=== PATIENT | male | born 1935 | race Caucasian/White ===

== ENCOUNTER 2017-03-11 08:00 | Day surgery (SDC) | payer MEDICARE, BC ==
[~2017-03-11] VITALS: Ht 180.3 cm; Wt 83.0 kg
[~2017-03-11 08:00] MED LIST: ADVAIR DISK1 INH; AMLODIPINE5 MG PO; AMOXICILLIN/CL875 MG PO; ATORVASTATIN CA40 MG PO; CLOPIDOGREL75 MG PO; DIOVAN80 MG PO; EQL ASPIRIN325 MG PO; FUROSEMIDE40 MG PO; GLIMEPIRIDE4 MG PO; JANUVIA100 MG PO; METFORMIN500 M2 PO; SPIRIVA IN; SPIRONOLACT25 MG PO; TAMSULOSIN0.4 MG PO; XARELTO20 MG PO
[2017-03-11 10:44] VITALS: BP 107/59
[2017-03-12] MEDS ORDERED: DIOVAN80 MG PO (15:25)
[2017-03-12] MEDS ORDERED: METFORMIN850 MG PO (15:26)
[2017-03-12] MEDS ORDERED: METO25TAB PO (15:29)
[2017-03-13] MEDS ORDERED: PROTONIX40 M2 PO (13:06)
[2017-03-13] MEDS ORDERED: VALSARTAN40 MG PO (13:06)
[2017-03-13] MEDS ORDERED: AMIODARONE200 MG PO (13:16)
== END 2017-03-11 11:05 | disposition home or self-care (01) ==
LOC: ENDO 08:00 → ORM 09:00 → ENDO 09:00 → ORM 09:45 → ENDO 11:05
PROVIDERS: ATTEND Surgery
PROC: 0DJ08ZZ Inspection of Upper Intestinal Tract, Via Natural or Artificial Opening Endoscopic (ICD-10-PCS; principal; 2017-03-11)
PROC: 0DJD8ZZ Inspection of Lower Intestinal Tract, Via Natural or Artificial Opening Endoscopic (ICD-10-PCS; 2017-03-11)
DX: R19.5 Other fecal abnormalities (principal); R63.4 Abnormal weight loss; K29.70 Gastritis, unspecified, without bleeding; K57.30 Diverticulosis of large intestine without perforation or abscess without bleeding; K55.20 Angiodysplasia of colon without hemorrhage; R14.0 Abdominal distension (gaseous); I11.0 Hypertensive heart disease with heart failure; I50.9 Heart failure, unspecified; E78.00 Pure hypercholesterolemia, unspecified; E11.9 Type 2 diabetes mellitus without complications; Z95.1 Presence of aortocoronary bypass graft; F17.210 Nicotine dependence, cigarettes, uncomplicated

== ENCOUNTER 2018-02-27 22:17 | Observation (INO) | payer MEDICARE, BC ==
[~2018-02-27] VITALS: Ht 180.3 cm; Wt 83.5 kg
[~2018-02-27 22:17] MED LIST changes: +AMIODARONE200 MG PO; +METFORMIN850 MG PO; +METO25TAB PO; +PROTONIX40 M2 PO; +VALSARTAN40 MG PO
--- NOTE | 2018-02-27 22:27 | NUR ---
DR AT BEDSIDE. PT IN ROOM
[2018-02-27 23:25] LABS: HEMATOCRIT 36.5 % (39.0-50.0); HEMOGLOBIN 12.1 g/dl (14.0-18.0); IMMATURE GRANULOCYTES 0.4 % (0.0-5.0); MEAN CELL VOLUME 87.3 fL CALC (80.0-100.0); MEAN CORPUSCULAR HGB 28.9 pG CALC (26.0-32.0); MEAN CORPUSCULAR HGB CONC 33.2 g/L CALC (32.0-36.0); NEUT# 5.78 thou/uL (1.82-7.42); RED BLOOD COUNT 4.18 mill/uL (4.70-6.10); RED CELL DISTRI WIDTH 14.3 % (11.5-15.5)
[2018-02-27 23:33] LABS: ACT PARTIAL THROMBO TIME 33.5 SECONDS (20.0-32.5); INTERNATIONAL NORMALIZED RATIO 1.3 RATIO (0.7-1.3); PROTHROMBIN TIME 13.9 SECONDS (9.0-12.5)
[2018-02-27 23:43] LABS: ALBUMIN 3.8 g/dL (3.2-5.0); ALKALINE PHOSPHATASE 54 u/l (38-126); ANION GAP 14 (6-22 (CALC)); BILIRUBIN, TOTAL 0.9 mg/dL (0.0-1.4); BUN 22 mg/dL (8-23); BUN/CREATININE RATIO 24 (12-20 (CALC)); CARBON DIOXIDE 22 mmol/l (22-30); CHLORIDE 108 mmol/l (95-108); CREATININE 0.9 mg/dL (0.7-1.3); GFR > 60 ML/MIN (>=60 (CALC)); GFR FOR AFR.AMER. > 60 ML/MIN (>=60 (CALC)); POTASSIUM 3.8 mmol/l (3.5-5.1); SGOT/AST 15 u/l (19-48); SODIUM 141 mmol/l (137-146); TOTAL PROTEIN 6.8 g/dL (6.3-8.2)
[2018-02-27 23:55] LABS: MYOGLOBIN 31 ng/mL (0 - 121)
--- NOTE | 2018-02-28 00:46 | NUR ---
PT APPEARS SOB ON EXERT. VOIDED 450 CC IN URINAL. PLACED ON NC FOR SAT OF 91
--- NOTE | 2018-02-28 00:49 | NUR ---
DR AWARE OF VS/UO/JUST ADMINISTERED LASIX
--- NOTE | 2018-02-28 00:54 | NUR ---
AT BEDSIDE TO DISCUSS RESULTS
--- NOTE | 2018-02-28 01:25 | NUR ---
REPORT TO ROBBIE, NURSE/MED SURG
--- NOTE | 2018-02-28 01:25 | NUR ---
PT VOIDED ANOTHER 800 CCS OF CLEAR YELLOW URINE FOR A TOTAL OF 1200 WHILE IN ER. TO FLOOR WITHOUT INCIDENT. AT BEDSIDE. PT AMBULATORY TO BED. NAD. BELONGINGS AND BAG OF MEDS AT BEDSIDE. RESP EASY. PT ON PORTABKLE MONITOR AND O2
[2018-02-28] MEDS ORDERED: MICRO-K10 ME1 PO (01:31)
[2018-02-28] MEDS ORDERED: TRAZODONE50 MG PO (01:32)
[2018-02-28] MEDS ORDERED: GABAPENTIN300 M2 PO (01:33)
[2018-02-28] MEDS ORDERED: DALIRESP500 MCG PO (01:34)
[2018-02-28] MEDS ORDERED: PROBIOTI2 PO (01:36)
[2018-02-28] MEDS ORDERED: BREO ELLIPTA 101 INH INHW/SPAC (01:37)
[2018-02-28] MEDS ORDERED: ANORO ELLIPTA 61 AER IN (01:37)
[2018-02-28] MEDS ORDERED: MELATONIN1 MG PO (01:38)
--- NOTE | 2018-02-28 01:38 | NUR ---
PT ARRIVED TO FLOOR VIA STRETCHER ACCOMPANIED BY ED NURSE. PT APPEARS TO BE IN STABLE CONDITION. V/S OBTAINED AND PT IS BEING ORIENTED TO ROOM,CALL SYSTEM, LIGHTS AND BED. ASSISTED TO RESTROOM. IS AT BEDSIDE.
[2018-02-28 01:56] VITALS: BP 143/70
--- NOTE | 2018-02-28 02:10 | NUR ---
PT ASSESSED, LUNG SOUNDS ARE DIMINISHED, ABD SOFT NON-TENDER, SKIN INTACT, TRACE EDEMA TO ANKLES BILAT, LOCX4. DENIES SOB/PAIN, PT IS TALKATIVE AND MAKING JOKES AND REPORTS FEELING MUCH BETTER SINCE ARRIVING TO HOSPITAL. IS NO LONGER AT BEDSIDE. POC DISCUSSED W/PT. URINAL EMPTIED OF 400CC CLEAR YELLOW URINE. CALL LIGHT PLACED AT PT SIDE AND PT ENCOURAGED TO CALL IF ANY NEEDS ARISE OR PRIOR TO AMBULATING FOR SAFETY MEASURES.
[2018-02-28 04:09] VITALS: BP 153/83
[2018-02-28 04:25] VITALS: BP 138/83
--- NOTE | 2018-02-28 05:06 | NUR ---
PT C/O OF HEADACHE/MEDICATED ORDERS PROVIDE. URINAL EMPTIED OF 500CC CLEAR LIGHT YELLOW URINE. PT DENIES ANY OTHER NEEDS AT THIS TIME. CALL LIGHT AT BEDSIDE.
[2018-02-28 05:35] LABS: URINE BILIRUBIN - DIPSTICK NEGATIVE (NEGATIVE); URINE BLOOD DIPSTICK NEGATIVE (NEGATIVE); URINE COLOR YELLOW; URINE GLUCOSE - DIPSTICK NEGATIVE (NEGATIVE); URINE KETONE NEGATIVE (NEGATIVE); URINE LEUK ESTERASE NEGATIVE (NEGATIVE); URINE NITRITE - DIPSTICK NEGATIVE (Negative); URINE PH 6.5 (4.5-8.0); URINE PROTEIN - DIPSTICK NEGATIVE (NEG-TRACE); URINE SPECIFIC GRAVITY <=1.005; URINE UROBILINOGEN - DIPSTICK 0.2 E.U./dL (0.2)
--- NOTE | 2018-02-28 07:00 | NUR ---
SHIFT REPORT, PT AWAKE ALERT AND ORIENTED SITTING UP IN BED, NO C/O DISCOMFORT, TELE MONITOR IN PLACE, CALL BUI IN REACH.
[2018-02-28 08:08] VITALS: BP 142/68
[2018-02-28 10:11] LABS: HEMATOCRIT 38.5 % (39.0-50.0); HEMOGLOBIN 12.6 g/dl (14.0-18.0); IMMATURE GRANULOCYTES 0.5 % (0.0-5.0); MEAN CELL VOLUME 88.1 fL CALC (80.0-100.0); MEAN CORPUSCULAR HGB 28.8 pG CALC (26.0-32.0); MEAN CORPUSCULAR HGB CONC 32.7 g/L CALC (32.0-36.0); NEUT# 7.98 thou/uL (1.82-7.42); RED BLOOD COUNT 4.37 mill/uL (4.70-6.10); RED CELL DISTRI WIDTH 14.5 % (11.5-15.5)
[2018-02-28 10:18] LABS: ANION GAP 15 (6-22 (CALC)); BUN 19 mg/dL (8-23); BUN/CREATININE RATIO 21 (12-20 (CALC)); CARBON DIOXIDE 24 mmol/l (22-30); CHLORIDE 107 mmol/l (95-108); CREATININE 0.9 mg/dL (0.7-1.3); GFR > 60 ML/MIN (>=60 (CALC)); GFR FOR AFR.AMER. > 60 ML/MIN (>=60 (CALC)); MAGNESIUM 2.1 mg/dL (1.6-2.3); POTASSIUM 3.4 mmol/l (3.5-5.1); SODIUM 143 mmol/l (137-146)
[2018-02-28 12:32] VITALS: BP 112/63
--- NOTE | 2018-02-28 12:50 | NUR ---
RELAXING IN RECLINER, MEDICAL TEAM ROUNDED AND DISCUSSED PLAN OF CARE, PT STATED UNDERSTANDING, ALL NEEDS ADDRESSED.
[2018-02-28] MEDS ORDERED: LASIX20 MG PO (14:26)
--- NOTE | 2018-02-28 15:25 | NUR ---
Discharge instructions given. Patient verbalizes understanding of same. Discharged in good condition via Ambulatory to Home with spouse. All belongings sent with pt.
== END 2018-02-28 15:35 | disposition home or self-care (01) ==
LOC: ED 22:17 → ED-I 02-28 00:49 → ED 02-28 01:06 → MS2 02-28 01:07
PROVIDERS: Emergency Medicine; Nurse Practitioner Family; ADMIT Internal Medicine Nephrology; ATTEND Internal Medicine Nephrology
DX: I11.0 Hypertensive heart disease with heart failure (principal); I50.23 Acute on chronic systolic (congestive) heart failure; E11.9 Type 2 diabetes mellitus without complications; J44.9 Chronic obstructive pulmonary disease, unspecified; E87.6 Hypokalemia; E78.5 Hyperlipidemia, unspecified; I48.2 Chronic atrial fibrillation; D64.9 Anemia, unspecified; F17.200 Nicotine dependence, unspecified, uncomplicated; Z95.5 Presence of coronary angioplasty implant and graft; Z95.1 Presence of aortocoronary bypass graft; Z79.01 Long term (current) use of anticoagulants; Z79.84 Long term (current) use of oral hypoglycemic drugs

== ENCOUNTER → 2018-05-03 | Outpatient (REF) | payer MEDICARE, BC ==
[~2018-05-03] MED LIST changes: +ANORO ELLIPTA 61 AER IN; +BREO ELLIPTA 101 INH INHW/SPAC; +DALIRESP500 MCG PO; +GABAPENTIN300 M2 PO; +LASIX20 MG PO; +MELATONIN1 MG PO; +MICRO-K10 ME1 PO; +PROBIOTI2 PO; +TRAZODONE50 MG PO
[2018-05-03 13:13] LABS: ANION GAP 14 (6-22 (CALC)); BUN 19 mg/dL (8-23); BUN/CREATININE RATIO 19 (12-20 (CALC)); CARBON DIOXIDE 28 mmol/l (22-30); CHLORIDE 103 mmol/l (95-108); GFR > 60 ML/MIN (>=60 (CALC)); GFR FOR AFR.AMER. > 60 ML/MIN (>=60 (CALC)); POTASSIUM 3.6 mmol/l (3.5-5.1); SODIUM 141 mmol/l (137-146)
== END | disposition home or self-care (01) ==
LOC: LAB 11:40
PROVIDERS: ATTEND Internal Medicine
DX: I50.22 Chronic systolic (congestive) heart failure (principal)